=== PATIENT | male | born 1995 | race Caucasian/White ===

== ENCOUNTER 2018-01-18 19:41 | Emergency (ER) | payer SELFPAY ==
[2018-01-18 19:55] VITALS: BP 167/88; PULSE 70; O2SAT 99
[2018-01-18] MEDS ORDERED: Fluor-I-Strip/Ful-Flo OP ONE (19:58)
[2018-01-18] MEDS ORDERED: TETRACAINE 0.5% STERI-UNIT SOL OP ONE (19:58)
--- NOTE | 2018-01-18 20:15 | ERPHSYRPT ---
- History of Present Illness Time Seen by Provider: 01/18/18 20:05 Source: patient Exam Limitations: no limitations Patient Subjective Stated Complaint: was milling metal metal in right eye since 1400 today Triage Nursing Assessment: alert and in no distress. redness and tearing to right eye.. denies blurriness. Physician History: 22 y/o male comes to the ER after getting a metal piece stuck in his right eye. Pt states that he feels as if the piece is still there after his girlfriend tried to take it out with a q tip. Pt denies any blurry vision, pain in the eye or discharge. Timing/Duration: today Location: right eye Severity: none Apparent Injury: yes Associated Symptoms: foreign body sensation Visual Assistive Devices: None Chemical Exposure: No Trauma: No Welding Arc/Tanning Bed Exposure: No Allergies/Adverse Reactions: No Known Drug Allergies Allergy (Verified 04/13/15 03:29) Hx Tetanus, Diphtheria Vaccination/Date Given: Yes Hx Influenza Vaccination/Date Given: No Hx Pneumococcal Vaccination/Date Given: No Immunizations Up to Date: (unknown) - Review of Systems Constitutional: No Fever, No Chills Eyes: No Symptoms, Tearing, Foreign Body Sensation, No Vision Changes Ears, Nose, & Throat: No Symptoms Respiratory: No Cough, No Dyspnea Cardiac: No Chest Pain, No Edema, No Syncope Abdominal/Gastrointestinal: No Abdominal Pain, No Nausea, No Vomiting, No Diarrhea Genitourinary Symptoms: No Dysuria Musculoskeletal: No Back Pain, No Neck Pain Skin: No Rash Neurological: No Dizziness, No Focal Weakness, No Sensory Changes Psychological: No Symptoms Endocrine: No Symptoms All Other Systems: Reviewed and Negative - Past Medical History Pertinent Past Medical History: No - Past Surgical History Past Surgical History: No - Social History Smoking Status: Current every day smoker Exposure to second hand smoke: No Drug Use: none Patient Lives Alone: No - Nursing Vital Signs Nursing Vital Signs: Initial Vital Signs Temperature 97 F 01/18/18 19:50 Pulse Rate 70 01/18/18 19:50 Respiratory Rate 16 01/18/18 19:50 Blood Pressure 167/88 01/18/18 19:50 O2 Sat by Pulse Oximetry 99 01/18/18 19:50 Pain Scale Pain Intensity 2 - Physical Exam General Appearance: no apparent distress Vision Acuity Degree Evaluation Phase: Uncorrected Vision Acuity Right Eye: 20/20 Vision Acuity Left Eye: 20/20 Eye Exam: right eye: foreign body, bilateral eye: normal inspection, PERRL, EOMI Ears, Nose, Throat Exam: moist mucous membranes Neck Exam: normal inspection Respiratory Exam: normal breath sounds Cardiovascular Exam: regular rate/rhythm Gastrointestinal Exam: soft, normal bowel sounds Extremity Exam: normal inspection Neurologic: alert, oriented x 3 SpO2: 99 Oxygen Delivery: Room Air - Course Nursing assessment & vital signs reviewed: Yes Ordered Tests: Active Orders 24 hr Category Date Time Status Sai Lens Irrigation STAT Care 01/18/18 20:12 Active Medication Summary Discontinued Medications Generic Name Dose Route Start Last Admin Trade Name Jacy PRN Reason Stop Dose Admin Fluorescein Sodium Confirm 01/18/18 19:58 Cspik-T-Jwzpo/Ful-Colin Administered 01/18/18 19:59 Dose 1 mg OP .STK-MED ONE Sodium Chloride Confirm 01/18/18 21:03 Sodium Chloride 0.9% 1000 Ml Administered 01/18/18 21:04 Dose 1,000 mls @ ud .ROUTE .STK-MED ONE Tetracaine HCl Confirm 01/18/18 19:58 Tetracaine 0.5% Steri-Unit Radha Administered 01/18/18 19:59 Dose 4 ml OP .STK-MED ONE - Progress Progress: improved Progress Note: 01/18/18 21:17 We attempted to dislodge the foreign object with a cotton swab with no success. The patient was not able to tolerate the sai lens with irrigation. Pt will be started on erythromycin ointment and will be referred to opthalmology. - Departure Time of Disposition: 21:19 Departure Disposition: Home Clinical Impression: Eye foreign body Qualifiers: Encounter type: initial encounter Laterality: right Qualified Code(s): T15.91XA - Foreign body on external eye, part unspecified, right eye, initial encounter Condition: Stable Critical Care Time: No Referrals: JUSTINO BANSAL MD [NON-STAFF PHY W/O PRIVILEGES] - Instructions: Foreign Body in Eye (DC) Additional Instructions: Follow up with Dr Bansal, opthalmology on Sunday. Prescriptions: Erythromycin Base 3.5 gm [Erythromycin 3.5 GM OPHTH.] 3.5 gm OP BID 5 Days #1 tube
[2018-01-18] MEDS ORDERED: Sodium Chloride 0.9% 1000 ML 1,000 ML ONE (21:03)
[2018-01-18] MEDS ORDERED: Erythromycin 3.5 GM OPHTH. OP ONE (21:17)
[2018-01-18] MEDS ORDERED: Erythromycin 1 GM ONE (21:25)
[2018-01-22] MEDS ORDERED: TETRACAINE 0.5% STERI-UNIT SOL OP STA (12:12)
[2018-01-22] MEDS ORDERED: Sodium Chloride 0.9% 1000 ML 1,000 ML IV STA (12:19)
== END 2018-01-18 21:34 | disposition home or self-care (01) ==
LOC: ED 19:41
DX: T15.91XA Foreign body on external eye, part unspecified, right eye, initial encounter (principal)
CPT/HCPCS: 66999; 99283; A9270-GY